=== PATIENT | male | born 1965 | race Caucasian/White ===

== ENCOUNTER 2020-04-30 16:01 | Observation (INO) ==
--- NOTE | 2020-04-30 16:41 | ERNOTE ---
GI Bleeding/Rectal Pain ER Date of Service: 04/30/20 Presenting Symptoms: rectal bleeding Time Seen by Provider: 04/30/20 16:45 Source: patient Exam Limitations: no limitations Immunizations: IMMUNIZATION HX Immunizations Up to Date Yes History of Influenza Vaccine No Hx Pneumococcal Vaccination Yes Allergies/Adverse Reactions: Allergies bee venom protein (honey bee) Allergy (Verified 04/30/20 16:16) Home Medications: HOME MEDICATIONS Lisinopril [Zestril] 5 mg PO DAILY 04/01/18 [Last Taken Unknown] Nortriptyline HCl [Pamelor] 150 mg PO HS 04/01/18 [Last Taken Unknown] hydrOXYzine HCL [Atarax] 10 mg PO PRN 04/01/18 [Last Taken Unknown] Multivitamin [One-Daily Multi-Vitamin] 1 tab PO DAILY 07/12/19 [Last Taken Unknown] Narrative: Pt presented to ER with c/o blood in his stool this AM. Pt states last evening pt was constipated and this AM when he did have a BM, he states his stool was dark, but when he wiped he had bright red blood on the paper. Pt states he job requires a COVID test berfore he returns to work if he comes to ER. This patient is a 55-year-old male who is here with some blood on the toilet paper. He said that his symptoms started about 10:00 last night. He had some low abdominal pain and thought he might be constipated. He went to the bathroom but was not able to pass anything. He said that he went 3 or 4 more times over the night but is not sure that he got anything out. When he woke this morning at 5 AM, he wiped after using the bathroom and noticed some blood on the toilet paper. He went to work and around 1145 this morning used the bathroom. He noted some blood on the toilet paper and blood in the stool. He spoke with somebody at the [facility] and ultimately came here for evaluation. He denies rectal pain. He reports some low abdominal dull pain. He said that his last stool output was 2 days ago. He has taken a couple of [id number] laxatives without relief. He denies being on a blood thinner. He has no other bleeding. Review of Systems - Narrative Narrative: He reports that if he needs to be hospitalized, he would prefer to go to the [facility]. - Review of Systems Constitutional: Absent: recent illness, fever EYE: Present: blurred vision - He does not wear his glasses ENT: Absent: ear pain, nose congestion, nasal drainage, sore throat Respiratory: Present: cough - He has a chronic cough that he attributes to smoking. Absent: shortness of breath Cardiology: Absent: chest pain, palpitations, syncope Gastrointestinal/Abdominal: Present: See HPI. Absent: nausea, vomiting, diarrhea, eating less, drinking less Genitourinary: Absent: frequency, pain, dysuria, hematuria Musculoskeletal: Present: no symptoms reported Skin: Absent: rash Neurological: Present: headache. Absent: dizziness/light-headedness Endocrine: Present: other - No diabetes Hematologic/Lymphatic: Present: See HPI Psych: Present: no symptoms reported Medical History (Last Reviewed 04/30/20 @ 17:11 by Freddy Gaffney MD) Anxiety Depression Hypertension Surgical History: Surgical History (Last Reviewed 04/30/20 @ 17:11 by Freddy Gaffney MD) History of appendectomy [place] teeth removed Social History: (Last Reviewed 04/30/20 @ 17:11 by Freddy Gaffney MD) Tobacco: Smoking Status: Current every day smoker Smoking cigarettes per day: 6 Alcohol: alcohol intake: current alcohol intake frequency: holiday/special occasion Substance Use: substance use type: does not use Physical Exam - Physical Exam General Appearance: Present: wd/wn, alert, no apparent distress Head Exam: Present: normal inspection, no evidence of injury Eye Exam: Normal inspection: bilateral Ears, Nose, Throat: Present: normal ENT inspection Neck: Present: normal inspection, supple Respiratory: Present: no respiratory distress, normal breath sounds, lungs clear Cardiovascular/Chest: Present: regular rate, rhythm, no murmur Gastrointestinal/Abdominal: Present: normal bowel sounds, nondistended, soft, no organomegaly, tenderness - Mild lower abdominal tenderness.. Absent: guarding, rebound Rectal Exam: Present: nontender, normal rectal tone, other - Maroon-colored stool with some bright red. Back Exam: Present: normal inspection, normal range of motion, no vertebral tenderness Extremity Exam: Present: normal inspection, other - Atraumatic Neurological Exam: Present: alert, oriented, normal mood/affect, no motor/sensory deficits - No gross lateralizing deficit. Skin Exam: Present: normal color, warm/dry Progress - Results and Orders Results and Orders: Laboratory Tests 04/30/20 04/30/20 16:54 16:54 WBC 19.8 H RBC 5.09 Hgb 14.9 Hct 45.9 MCV 90.2 MCH 29.3 MCHC 32.5 RDW 15.3 H Plt Count 238 MPV 10.6 Immature Gran % (Auto) 0.50 H Immature Gran # (Auto) 0.09 H Neutrophils % 74.3 Lymphocytes % 16.0 L Monocytes % 7.0 Eosinophils % 1.7 Basophils % 0.5 Nucleated RBC % 0.0 Neutrophils # 14.7 H Lymphocytes # 3.16 Monocytes # 1.4 H Eosinophils # 0.3 Absolute Basophils 0.1 Sodium 139 Plasma Sodium 140 Potassium 3.9 Chloride 105 Carbon Dioxide 26.0 Anion Gap 11.9 BUN 26 H Creatinine 0.95 Est GFR (Non-Af Amer) 88 D BUN/Creatinine Ratio 27.4 H Random Glucose 153 H Calcium 8.9 Calcium Adj for Albumin 8.7 Total Bilirubin 0.9 AST 13 ALT 31 Alkaline Phosphatase 73 Total Protein 7.3 Albumin 3.8 - Vital Signs Patient's Vital Signs:: I have reviewed the patient's vital signs. Vital Signs: Vital Signs 04/30/20 16:11 Temperature 37.3 C Pulse Rate 108 H Respiratory Rate 16 Blood Pressure 139/99 H O2 Sat by Pulse Oximetry 98 - CT/Ultrasound CT/Ultrasound Narrative: CT Abdomen/Pelvis W/C *~ Exam Date: 04/30/2020 17:59 Ordering Physician: Freddy Gaffney MD CT Abdomen/Pelvis W/C * History: Low abdominal pain, elevated WBC, GI bleed bloody stools times one day. Diarrhea. Technique: Contrast enhanced CT images of the abdomen during the portal venous phase were obtained. Excretory phase images of the abdomen and pelvis were also obtained. Coronal reconstructions are submitted. Individualized dose optimization technique was used for the performed procedure including automated exposure control, adjustment of the mA and/or kV according to patient size and/or the iterative reconstruction technique. Comparison: None. Findings: Atelectasis and or scarring at the lung bases. Scattered calcified granulomas. Scattered lung cysts also noted. Hepatic steatosis. Scattered calcified splenic granulomas. Pancreas and adrenal glands are unremarkable. The gallbladder is unremarkable. Cortical hypodensity at the posterior midpole right kidney is too small to fully characterize, and likely represents a small cortical cyst. No solid enhancing renal mass. Symmetric nephrograms. Limited evaluation of the unopacified hollow viscera. No evidence of bowel obstruction. Change from appendectomy. There is bowel wall thickening involving the distal transverse colon, splenic flexure, descending colon, and rectosigmoid colon with pericolonic fat stranding. Scattered colonic diverticulosis. No evidence of diverticulitis. No appreciable extravasation of intravenous contrast in the lumen of the inflamed bowel. No pneumatosis or portal venous gas. Incomplete urinary bladder distention. The pelvic structures are otherwise unremarkable. Normal caliber abdominal aorta. The abdominal aorta is intact. Scattered atherosclerotic changes. Main portal vein, splenic vein, superior mesenteric vein are patent. The SMA is patent. No significant lymphadenopathy. No pneumoperitoneum. No free fluid. No fluid collections. No hemoperitoneum. Small fat-containing umbilical hernia. Small fat-containing left inguinal hernia. No acute osseous findings. Degenerative changes noted. Transitional lumbosacral anatomy. IMPRESSION:Exam is positive for left colitis. No pneumatosis or portal venous gas. No free air. No abscess. Additional findings and comments are as above. Electronically signed by Lul Fitch D.O.. - Progress/Reassessment Chief Complaint: GI Bleed Departure Clinical Impression: Colitis - Departure Disposition: Short Term Hospital Inpatient Condition: Stable
[2020-04-30 17:01] LABS: Hematocrit 45.9 % (42.0-52.0); Hemoglobin 14.9 gm/dL (13.5-18.0); Mean Cell Volume 90.2 fl (78-100); Mean Corpuscular Hemoglobin 29.3 pg (27-31); Mean Corpuscular Hgb Conc 32.5 g/dl (32-36); Mean Platelet Volume 10.6 fl (8-11.3); Neutrophil # 14.7 K/mm3 (1.3-6.0); Neutrophil % 74.3 % (42-75.0); Platelet Count 238 K/mm3 (150-450); Red Blood Count 5.09 M/mm3 (4.7-6.0); Red Cell Distribution Width 15.3 % (11.5-14.0); White Blood Count 19.8 K/mm3 (4.0-10.5)
[2020-04-30 17:16] LABS: Albumin * 3.8 gm/dl (3.4-5.0); Anion Gap 11.9 mmol/L (6.8-13.8); BUN/Creatinine Ratio 27.4 (9.0-21.6); Bilirubin, Total 0.9 mg/dL (0.0-1.1); Ca. Corrected For Albumin 8.7 mg/dL (8.4-10.2); Calcium * 8.9 mg/dL (7.9-10.9); Potassium 3.9 mmol/L (3.4-4.6); Total Protein 7.3 gm/dL (6.2-8.2)
[2020-04-30] MEDS ORDERED: NORMAL SALINE 1,000 ML IV PRN (17:47)
[2020-04-30] MEDS ORDERED: NORMAL SALINE 1,000 ML IV ONE (17:54)
[2020-04-30] MEDS ORDERED: PIPERACILLIN SODIUM/TAZOBACTAM 4.5 GM in DEXTROSE 5 % IN WATER 100 ML IV ONE ×2 (18:57)
--- NOTE | 2020-04-30 19:52 | HP ---
Chief Complaint - Chief Complaint Date of Service: 04/30/20 Time of Service: 19:30 Chief Complaint: Abdominal pain and bright red blood per rectum History of Present Illness: 55-year-old male with a past medical history of hypertension, anxiety, depression presents from home with complaints of bright red blood per rectum and left lower abdominal pain. He states the pain began last night. He also noted blood on the toilet paper when he wiped. Today he noted 1 bloody bowel movement blood on the stool and in the toilet. He presents to the emergency room and was found to have CT abdomen/pelvis positive for left colitis, no abscess, no free air. Blood work shows a white blood cell count of 19.8, hemoglobin of 14.9, hematocrit 45.9. He is being admitted for colitis with bright red blood per rectum. Medical History (Last Reviewed 04/30/20 @ 17:11 by Freddy Gaffney MD) Anxiety Depression Hypertension Surgical History: Surgical History (Last Reviewed 04/30/20 @ 17:11 by Freddy Gaffney MD) History of appendectomy [place] teeth removed Family History: Family History (Last Updated 04/30/20 @ 19:51 by Aysha Nash MD) Other Family history non-contributory Social History: (Last Reviewed 04/30/20 @ 17:11 by Freddy Gaffeny MD) Tobacco: Smoking Status: Current every day smoker Smoking cigarettes per day: 6 Alcohol: alcohol intake: current alcohol intake frequency: holiday/special occasion Substance Use: substance use type: does not use Review Of Systems (GEN) - Review of Systems Generalized/Overall Review: Absent: Fever Respiratory: Absent: Shortness of Breath Cardiac: Absent: Chest Pain Abdominal: Present: Abdominal Pain - Left lower quadrant, Bright blood from rect um Misc: All systems neg except as marked Immunizations: IMMUNIZATION HX Immunizations Up to Date Yes History of Influenza Vaccine No Hx Pneumococcal Vaccination Yes Allergies/Adverse Reactions: Allergies Allergy/AdvReac Type Severity Reaction Status Date / Time bee venom protein (honey bee) Allergy Verified 04/30/20 16:16 Home Medications: HOME MEDICATIONS Lisinopril [Zestril] 5 mg PO DAILY 04/01/18 [Last Taken Unknown] Nortriptyline HCl [Pamelor] 150 mg PO HS 04/01/18 [Last Taken Unknown] hydrOXYzine HCL [Atarax] 10 mg PO PRN 04/01/18 [Last Taken Unknown] Multivitamin [One-Daily Multi-Vitamin] 1 tab PO DAILY 07/12/19 [Last Taken Unknown] Exam - Exam Vital Signs: Vital Signs - Last Taken Temp 37.3 C 04/30/20 16:11 Pulse 95 04/30/20 18:31 Resp 18 04/30/20 18:31 BP 139/95 H 04/30/20 18:31 Pulse Ox 98 04/30/20 18:31 Constitutional: Present: Alert, Cooperative, Well developed, Well nourished, No distress ENT Exam: Present: hearing grossly normal, moist mucous membranes Eye Exam: bilateral eye: normal inspection, PERRL, EOMI Neck: Present: non-tender, supple. Absent: lymphadenopathy (R), lymphadenopathy (L) Back Exam: Present: normal inspection, no CVA tenderness, no vertebral tenderness Respiratory: Present: lungs clear, no respiratory distress, no accessory muscle use, No wheezing. Absent: rhonchi Cardiovascular/Chest: Present: normal peripheral pulses, regular rate, rhythm, no edema, no murmur Peripheral Pulses: dorsalis-pedis (R): 1+, dorsalis-pedis (L): 1+ Abdomen: Present: Normal bowel sounds, soft, tender - Left lower quadrant Extremity: Present: no pedal edema Skin Exam: Present: normal color, warm/dry Neurologic: Present: alert, normal mood/affect Appearance: Present: appropriate appearance, appropriate insight Eye contact: Present: cooperative Thoughts: Present: normal thought pattern, normal mood /affect Diagnostic Studies: Abnormal Lab Results 04/30/20 04/30/20 Range/Units 16:54 16:54 WBC 19.8 H (4.0-10.5) K/mm3 RDW 15.3 H (11.5-14.0) % Immature Gran % (Auto) 0.50 H (0.001-0.429) % Immature Gran # (Auto) 0.09 H (0.000-0.0310) K/mm3 Lymphocytes % 16.0 L (20-51) % Neutrophils # 14.7 H (1.3-6.0) K/mm3 Monocytes # 1.4 H (0.0-1.0) k/mm3 BUN 26 H (6-23) mg/dL BUN/Creatinine Ratio 27.4 H (9.0-21.6) Random Glucose 153 H (70-110) mg/dL Laboratory Results WBC 19.8 K/mm3 (4.0-10.5) H 04/30/20 16:54 RBC 5.09 M/mm3 (4.7-6.0) 04/30/20 16:54 Hgb 14.9 gm/dL (13.5-18.0) 04/30/20 16:54 Hct 45.9 % (42.0-52.0) 04/30/20 16:54 MCV 90.2 fl (78-100) 04/30/20 16:54 MCH 29.3 pg (27-31) 04/30/20 16:54 MCHC 32.5 g/dl (32-36) 04/30/20 16:54 RDW 15.3 % (11.5-14.0) H 04/30/20 16:54 Plt Count 238 K/mm3 (150-450) 04/30/20 16:54 MPV 10.6 fl (8-11.3) 04/30/20 16:54 Immature Gran % (Auto) 0.50 % (0.001-0.429) H 04/30/20 16:54 Immature Gran # (Auto) 0.09 K/mm3 (0.000-0.0310) H 04/30/20 16:54 Neutrophils % 74.3 % (42-75.0) 04/30/20 16:54 Lymphocytes % 16.0 % (20-51) L 04/30/20 16:54 Monocytes % 7.0 % (0.0-9) 04/30/20 16:54 Eosinophils % 1.7 % (0.0-3.0) 04/30/20 16:54 Basophils % 0.5 % (0.0-1.0) 04/30/20 16:54 Nucleated RBC % 0.0 k/mm3 (0-1) 04/30/20 16:54 Neutrophils # 14.7 K/mm3 (1.3-6.0) H 04/30/20 16:54 Lymphocytes # 3.16 k/mm3 (1.5-3.5) 04/30/20 16:54 Monocytes # 1.4 k/mm3 (0.0-1.0) H 04/30/20 16:54 Eosinophils # 0.3 k/mm3 (0.0-0.7) 04/30/20 16:54 Absolute Basophils 0.1 k/mm3 (0.0-0.1) 04/30/20 16:54 Sodium 139 mmol/L (132-142) 04/30/20 16:54 Plasma Sodium 140 mmol/L (130-142) 04/30/20 16:54 Potassium 3.9 mmol/L (3.4-4.6) 04/30/20 16:54 Chloride 105 mmol/L (97-106) 04/30/20 16:54 Carbon Dioxide 26.0 mmol/L (24-32.6) 04/30/20 16:54 Anion Gap 11.9 mmol/L (6.8-13.8) 04/30/20 16:54 BUN 26 mg/dL (6-23) H 04/30/20 16:54 Creatinine 0.95 mg/dL (0.4-1.4) 04/30/20 16:54 Est GFR (Non-Af Amer) 88 mL/min (60-130) D 04/30/20 16:54 BUN/Creatinine Ratio 27.4 (9.0-21.6) H 04/30/20 16:54 Random Glucose 153 mg/dL (70-110) H 04/30/20 16:54 Calcium 8.9 mg/dL (7.9-10.9) 04/30/20 16:54 Calcium Adj for Albumin 8.7 mg/dL (8.4-10.2) 04/30/20 16:54 Total Bilirubin 0.9 mg/dL (0.0-1.1) 04/30/20 16:54 AST 13 U/L (0-48) 04/30/20 16:54 ALT 31 U/L (19-67) 04/30/20 16:54 Alkaline Phosphatase 73 U/L (50-170) 04/30/20 16:54 Total Protein 7.3 gm/dL (6.2-8.2) 04/30/20 16:54 Albumin 3.8 gm/dl (3.4-5.0) 04/30/20 16:54 Blood Type A Positive 04/30/20 16:54 Antibody Screen Negative 04/30/20 16:54 Assessment/Plan - Narrative Narrative: 55-year-old male with a past medical history of hypertension, anxiety, depression presents from home with complaints of bright red blood per rectum and left lower abdominal pain. He states the pain began last night. He also noted blood on the toilet paper when he wiped. Today he noted 1 bloody bowel movement blood on the stool and in the toilet. He presents to the emergency room and was found to have CT abdomen/pelvis positive for left colitis, no abscess, no free air. Blood work shows a white blood cell count of 19.8, hemoglobin of 14.9, hematocrit 45.9. He is being admitted for colitis with bright red blood per rectum. Plan #1 continue with Zosyn. #2 CBC and CMP in the morning #3 resume home medications for comorbidities - Assessment/Plan (1) Bright red blood per rectum Problem: Acute (2) Colitis Problem: Acute (3) Hypertension Problem: Chronic Qualifiers: Hypertension type: essential hypertension Qualified Code(s): I10 - Essential (primary) hypertension (4) Anxiety and depression Problem: Chronic
[2020-04-30] MEDS ORDERED: ACETAMINOPHEN 325 MG TABLET PO PRN (19:57)
[2020-04-30] MEDS ORDERED: HYDROXYZINE HCL 10 MG PO SCH (20:00)
[2020-04-30] MEDS ORDERED: NORTRIPTYLINE HCL 25 MG CAPSULE PO SCH (22:00)
[2020-04-30] MEDS ORDERED: hydrOXYzine HCL 10 MG TABLET PO PRN (22:37)
[2020-04-30] MEDS: CIPROFLOXACIN HCL 500 MG TABLET PO SCH (23:22)
[2020-04-30] MEDS: metroNIDAZOLE 500 MG TABLET PO SCH (23:22)
[2020-05-01] MEDS ORDERED: CIPROFLOXACIN HCL 250 MG TABLET PO ONE
[2020-05-01 06:35] LABS: Hematocrit 42.9 % (42.0-52.0); Mean Cell Volume 90.3 fl (78-100); Mean Corpuscular Hemoglobin 29.5 pg (27-31); Mean Corpuscular Hgb Conc 32.6 g/dl (32-36); Mean Platelet Volume 10.7 fl (8-11.3); Platelet Count 203 K/mm3 (150-450); Red Blood Count 4.75 M/mm3 (4.7-6.0); Red Cell Distribution Width 15.3 % (11.5-14.0)
[2020-05-01 06:45] LABS: Total Cells Counted 100
[2020-05-01 06:52] LABS: Albumin * 3.2 gm/dl (3.4-5.0); Anion Gap 10.5 mmol/L (6.8-13.8); BUN/Creatinine Ratio 23.9 (9.0-21.6); Bilirubin, Total 0.8 mg/dL (0.0-1.1); Ca. Corrected For Albumin 8.9 mg/dL (8.4-10.2); Calcium * 8.6 mg/dL (7.9-10.9); Carbon Dioxide 26.8 mmol/L (24-32.6); Potassium 4.3 mmol/L (3.4-4.6); Total Protein 6.5 gm/dL (6.2-8.2)
[2020-05-01 07:03] LABS: Eosinophil 3 % (0-3); Lymphocyte 15 % (20-51); Monocyte 8 % (0-9); Neutrophil 74 % (42-75); Neutrophil # 14.1 K/mm3 (1.3-6.0)
[2020-05-01 07:04] LABS: Platelet Estimate Normal (NORMAL); RBC Morphology Normal (NORMAL)
[2020-05-01] MEDS ORDERED: MULTIVITAMINS 1 CAP CAPSULE PO SCH (09:00)
[2020-05-01] MEDS ORDERED: LISINOPRIL 5 MG TABLET PO SCH (09:00)
[2020-05-01] MEDS: metroNIDAZOLE 500 MG TABLET PO SCH (09:30)
[2020-05-01] MEDS: CIPROFLOXACIN HCL 500 MG TABLET PO SCH (09:30)
[2020-05-01 11:28] VITALS: BP 143/96
--- NOTE | 2020-05-01 11:34 | DS ---
(1) Bright red blood per rectum Problem: Acute (2) Colitis Problem: Acute (3) Hypertension Problem: Chronic Qualifiers: Hypertension type: essential hypertension Qualified Code(s): I10 - Essential (primary) hypertension (4) Anxiety and depression Problem: Chronic Hospital Course: 55-year-old male with a past medical history of hypertension, anxiety, depression presents from home with complaints of bright red blood per rectum and left lower abdominal pain. He states the pain began last night. He also noted blood on the toilet paper when he wiped. Today he noted 1 bloody bowel movement blood on the stool and in the toilet. He presents to the emergency room and was found to have CT abdomen/pelvis positive for left colitis, no abscess, no free air. Blood work shows a white blood cell count of 19.8, hemoglobin of 14.9, hematocrit 45.9. He is being admitted for colitis with bright red blood per rectum. His hemoglobin remained stable. He is no longer having bloody bowel movements this morning. He continues to have mild left lower quadrant abdominal pain. He is afebrile. White count is downtrending. He is stable to be discharged home on ciprofloxacin and Flagyl for total of 7 days. He should follow-up with his primary care provider in 1 week. Procedures Performed: none Results and Findings: Lab Pending Results 04/30/20 16:54: WBC 19.8 H, RBC 5.09, Hgb 14.9, Hct 45.9, MCV 90.2, MCH 29.3, MCHC 32.5, RDW 15.3 H, Plt Count 238, MPV 10.6, Immature Gran % (Auto) 0.50 H, Immature Gran # (Auto) 0.09 H, Neutrophils % 74.3, Lymphocytes % 16.0 L, Monocytes % 7.0, Eosinophils % 1.7, Basophils % 0.5, Nucleated RBC % 0.0, Neutrophils # 14.7 H, Lymphocytes # 3.16, Monocytes # 1.4 H, Eosinophils # 0.3, Absolute Basophils 0.1 04/30/20 16:54: Sodium 139, Plasma Sodium 140, Potassium 3.9, Chloride 105, Carbon Dioxide 26.0, Anion Gap 11.9, BUN 26 H, Creatinine 0.95, Est GFR (Non-Af Amer) 88 D, BUN/Creatinine Ratio 27.4 H, Random Glucose 153 H, Calcium 8.9, Calcium Adj for Albumin 8.7, Total Bilirubin 0.9, AST 13, ALT 31, Alkaline Phosphatase 73, Total Protein 7.3, Albumin 3.8 04/30/20 16:54: Blood Type A Positive, Antibody Screen Negative 04/30/20 19:40: SARS-CoV-2 (PCR) Not detected 05/01/20 06:25: WBC 19.0 H, RBC 4.75, Hgb 14.0, Hct 42.9, MCV 90.3, MCH 29.5, MCHC 32.6, RDW 15.3 H, Plt Count 203, MPV 10.7, Neutrophils % (Manual) 74, Lymphocytes % (Manual) 15 L, Monocytes % (Manual) 8, Eosinophils % (Manual) 3, Neutrophils # (Manual) 14.1 H, Lymphocytes # (Manual) 2.9, Monocytes # (Manual) 1.5 H, Eosinophils # (Manual) 0.6, Platelet Estimate Normal, RBC Morphology Normal 05/01/20 06:25: Sodium 140, Plasma Sodium 140, Potassium 4.3, Chloride 107 H, Carbon Dioxide 26.8, Anion Gap 10.5, BUN 22, Creatinine 0.92, Est GFR (Non-Af Amer) 91, BUN/Creatinine Ratio 23.9 H, Random Glucose 120 H, Calcium 8.6, Calcium Adj for Albumin 8.9, Total Bilirubin 0.8, AST 11, ALT 26, Alkaline Phosphatase 62, Total Protein 6.5, Albumin 3.2 L Discharge Location: Home Disposition: Home self-care Condition: Stable Discharge Activity: Activity as tolerated Discharge Diet: General/regular food Prescriptions (Any new or edited meds): Ciprofloxacin HCl [Cipro] 500 mg PO BID #12 tab Transmission Status: Pending to [id number] metroNIDAZOLE [Flagyl] 500 mg PO Q8H #18 tab Transmission Status: Pending to [id number] Complete Home Medications List: Complete Home Medication List: Lisinopril [Zestril] 5 mg PO DAILY 04/01/18 Nortriptyline HCl [Pamelor] 150 mg PO HS 04/01/18 hydrOXYzine HCL [Atarax] 10 mg PO BID PRN 04/01/18 Multivitamin [One-Daily Multi-Vitamin] 1 tab PO DAILY 07/12/19 Meloxicam [Mobic] 7.5 mg PO DAILY 04/30/20 Ciprofloxacin HCl [Cipro] 500 mg PO BID #12 tab 05/01/20 metroNIDAZOLE [Flagyl] 500 mg PO Q8H #18 tab 05/01/20
== END 2020-05-01 12:25 | disposition home or self-care (01) ==
LOC: ER 16:01 → INTOOBSV 21:06 → MS 21:06 → UNDODISIN 05-01 12:25
PROVIDERS: ADMIT Internal Medicine; ATTEND Internal Medicine